=== PATIENT | male | born 1985 | race African-American/Black ===

== ENCOUNTER 2018-05-27 18:02 | Emergency (ER) | payer SELFPAY ==
[2018-05-27] MEDS ORDERED: CEFTRIAXONE INJ 250 MG VIAL IM ONE (20:09)
[2018-05-27] MEDS ORDERED: METRONIDAZOLE 500 MG TABLET PO STA (20:09)
[2018-05-27] MEDS ORDERED: AZITHROMYCIN 250 MG TABLET PO STA (20:10)
--- NOTE | 2018-05-27 20:24 | ER Document Report ---
ED GI/ - General Chief Complaint: Penile Discharge Stated Complaint: PENIAL DRAINAGE Time Seen by Provider: 05/27/18 19:59 Mode of Arrival: Ambulatory Information source: Patient Notes: Patient is a 32-year-old male comes emergency room 2 complaints his primary complaint is he believes he has an STD. #2 complaint is his right ankle hurts. Patient states that his cold is been going out with he believes she is contracted an STD most likely chlamydia he is started with a penile discharge that is not quite as yellow as what he remembers in his younger age more of a whitish kind of a discharge. It all started approximately 4 days ago. Patient furthermore states that she is being treated as well. The second thing is that he was at work today while lifting a mattress above his head was on a slight hill as he lifted his right ankle rolled on him inverted and complains of pain and swelling. He denies any injuries or fall. He continued throughout the day to finish work but it is swollen more since then. Patient is requesting that we treat him for his STD and also just treat his ankle he does not want an x-ray. TRAVEL OUTSIDE OF THE [place] IN LAST 30 DAYS: No - HPI Patient complains to provider of: Other - Penile discharge. No: Testicular pain Onset: Other Timing/Duration: Gradual - 4 days Quality of pain: No pain Severity at maximum: Mild Severity in ED: Mild Pain Level: 1 Location: Other - Penis. No: Left testicle, Right testicle Sexual history: Active, New partner, Unprotected intercourse, STD exposure Associated symptoms: Dysuria, Penile discharge Exacerbated by: Denies Relieved by: Denies Similar symptoms previously: Yes Recently seen / treated by doctor: No - Related Data Allergies/Adverse Reactions: phenytoin [From Dilantin] Allergy (Verified 05/27/18 18:04) Past Medical History - General Information source: Patient - Social History Smoking Status: Current Every Day Smoker Cigarette use (# per day): Yes - 1 pack a day Chew tobacco use (# tins/day): No Smoking Education Provided: Yes Frequency of alcohol use: None Drug Abuse: None Lives with: Alone Family History: Reviewed & Not Pertinent Patient has suicidal ideation: No Patient has homicidal ideation: No Renal/ Medical History: Denies: Hx Peritoneal Dialysis Review of Systems - Review of Systems Constitutional: No symptoms reported EENT: No symptoms reported Cardiovascular: No symptoms reported Respiratory: No symptoms reported Gastrointestinal: No symptoms reported Genitourinary: See HPI, Dysuria Male Genitourinary: See HPI, Penile discharge Musculoskeletal: See HPI, Joint pain, Joint swelling, Ankle swelling Skin: No symptoms reported Hematologic/Lymphatic: No symptoms reported Neurological/Psychological: No symptoms reported -: Yes All other systems reviewed and negative Physical Exam - Vital signs Vitals: Temp Pulse Resp BP Pulse Ox 98.7 F 81 17 114/62 100 05/27/18 18:32 05/27/18 18:32 05/27/18 18:32 05/27/18 18:32 05/27/18 18:32 Interpretation: Normal - Notes Notes: PHYSICAL EXAMINATION: GENERAL: patient is a well-nourished well-developed 32-year-old male who is in no apparent distress on physical examination. He is however slightly anxious and embarrassed about his presentation. HEAD: Atraumatic, normocephalic NECK: Normal range of motion, supple without lymphadenopathy LUNGS: Breath sounds clear to auscultation bilaterally and equal. No wheezes rales or rhonchi. HEART: Regular rate and rhythm without murmurs ABDOMEN: Soft, nontender, nondistended abdomen. No guarding, no rebound. Examination of patient's penis and testicles shows no discharge on present physical examination. Patient had previously urinated and thus no discharge. Also there were no tenderness to palpation of the testicles. They home evenly with a good cremaster reflex. Bilaterally. Musculoskeletal: Examination of patient's right ankle shows he has some mild swelling on the lateral malleoli are area. He has increased tenderness on the anterior portion of the right ankle just above the lateral malleolus. He has flexion extension of the foot with some discomfort and tenderness. He has a good vascular examination of the right ankle and foot with good dorsalis pedal pulse good cap refill in the nailbeds of the toes. NEUROLOGICAL: Normal speech. Normal sensory, motor exams PSYCH: Normal mood, normal affect. SKIN: Warm, Dry, normal turgor, no rashes or lesions noted. Course - Re-evaluation Re-evalutation: 05/27/18 20:19 Patient is requested that we treat his STD since he has known exposure. We will do this with a 250 Rocephin IM as well as 1 g of Zithromax and 2 g of Flagyl. I will give him our number here to contact us tomorrow to find out whether it was positive or not. He is also refused to have an x-ray performed. Given that we are placing him in an Jesus wrap and I have informed him that I cannot really tell him if he has an avulsion fracture of the area or not. At this point patient states he will use the Jesus wrap take it off when he gets home he will purchase of those Jesus socks at 1 of the pharmacy so he can just pull it on it and use it and as he gets worse he will return to ER he says. 05/28/18 01:47 - Vital Signs Vital signs: Temp Pulse Resp BP Pulse Ox 97.9 F 69 14 135/69 H 100 05/27/18 20:50 05/27/18 20:50 05/27/18 20:50 05/27/18 20:50 05/27/18 20:50 - Laboratory Laboratory results interpreted by me: 05/27/18 19:14 N.gonorrhoeae DNA (PCR) DETECTED H Procedures - Immobilization Right Ankle Time completed: 20:20 Pre-Proc Neuro Vasc Exam: Normal Immobilizer type: Jesus wrap Performed by: PCT Post-Proc Neuro Vasc Exam: Normal, Abnormal Discharge - Discharge Clinical Impression: Exposure to STD Right ankle sprain Qualifiers: Encounter type: initial encounter Involved ligament of ankle: unspecified ligament Qualified Code(s): S93.401A - Sprain of unspecified ligament of right ankle, initial encounter Condition: Stable Disposition: HOME, SELF-CARE Instructions: Gonorrhea ([facility]), Splint Precautions ([facility]), Sprain ([facility]), Sprained Ankle ([facility]) Additional Instructions: Trichomonas Infection Trichomoniasis is infection of the vagina or male genital tract with Trichomonas vaginalis. It can be asymptomatic or cause urethritis, vaginitis, or occasionally cystitis, epididymitis, or prostatitis. Diagnosis is by microscopic examination of vaginal or prostatic secretions or by urethral culture. Patients and sex partners are treated with metronidazole. T. vaginalis is a flagellated, sexually transmitted protozoan that more often infects women (about 20% of women of reproductive age) than men. Infection may be asymptomatic in either sex, but asymptomatic is the rule for men. In men, protozoa may persist for long periods in the tract without causing symptoms; thus, protozoa may be transmitted unwittingly to sex partners. Trichomoniasis may account for up to 5% of nongonococcal, nonchlamydial urethritis in men in some areas. Co-infection with gonorrhea and other sexually transmitted diseases (STDs) is common. In women, symptoms range from none to copious, yellow-green, frothy vaginal discharge with soreness of the vulva and perineum, dyspareunia, and dysuria. Asymptomatic infection may become symptomatic at any time as the vulva and perineum become inflamed and edema develops in the labia. The vaginal diaz and surface of the cervix may have punctate, red "strawberry" spots. Urethritis and possibly cystitis may also occur. Men are usually asymptomatic; however, sometimes urethritis results in a discharge that may be transient, frothy, or purulent or that causes dysuria and frequency, usually early in the morning. Often, urethritis is mild and causes only minimal urethral irritation and occasional moisture at the urethral meatus, under the foreskin, or both. Epididymitis and prostatitis are rare complications. Trichomoniasis is suspected in women with vaginitis, in men with urethritis, and in their sex partners. Suspicion is high if symptoms persist after patients have been evaluated and treated for other infections such as gonorrhea and chlamydial, mycoplasmal, and ureaplasmal infections. In women, diagnosis is based on clinical criteria and in-office testing. The saline wet mount is examined microscopically as soon as possible to detect trichomonads.In men, microscopy of urine is insensitive, although occasionally organisms are visible in a first-voided morning specimen or a centrifuged specimen. Cultures of urine and urethral swabs are more sensitive. As with diagnosis of any STD, patients with trichomoniasis should be tested to exclude other common STDs such as gonorrhea and chlamydial infection. Metronidazole or tinidazole 2 g po in a single dose cures up to 95% of women if sex partners are treated simultaneously. Effectiveness of single-dose regimens in men is not as clear, so treatment is typically with metronidazole or tinidazole 500 mg bid for 5 to 7 days. Sex partners should be screened and treated for trichomoniasis and other STDs. If poor adherence to follow-up is likely, treatment can be initiated in sex partners of patients with documented trichomoniasis without confirming the diagnosis in the partner. Chlamydia You may have a chlamydia infection. Chlamydia is a germ that grows inside the cells of the mucous membranes. It often infects the eyes, urethra, and fallopian tubes. It can cause chronic pain and scar tissue if untreated. Antibiotics are used to treat chlamydia. It's important to take all the medicine even if there are no symptoms. Use condoms to prevent spread of the infection. Because this infection can spread by sexual contact, it's important that your sexual partner be checked before resuming sexual relations. A positive test for chlamydia has to be reported to the health department. Call the doctor or return at once if you develop increasing fever, rash, severe pelvic pain, vaginal bleeding (other than your period), or problems with your bladder or bowels. For your ankle cytology without having an x-ray is difficult to see if there is a fractured or not. However go to [facility] and get an Jesus wrap that has the toes cut out a bit and the heel cut out of it and slides on this will make it easier for you to slide it on and use it for work. Ice down when you get home at night 3 or 3 times a day. I am giving ibuprofen for the inflammation and swelling. You may also add Tylenol along with that if you would like. Should you have have continued pain and discomfort return to ER for recheck. Also on the STD treating you here is covered gonorrhea chlamydia and trichomonas we do not test for HIV you need to go to the health department for that. Also both partners have to be treated to make certain that it is gone and you cannot have intercourse while you were both being treated you must wait 10 days after your treatment we start intercourse if you do not you we will just keep the plopping back and forth. Prescriptions: Ibuprofen [Motrin 800 mg Tablet] 800 mg PO Q8H PRN #30 tab PRN Reason: Referrals: CONSTANTINE HOOK MD [[facility]] - Follow up as needed
[2018-05-27 20:58] VITALS: BP 135/69
[2018-05-27 22:28] LABS: CHLAM PCR NOT DETECTED (NOT DETECT); GON PCR DETECTED (NOT DETECT)
== END 2018-05-27 20:54 | disposition home or self-care (01) ==
LOC: ER 18:02
DX: S93.401A Sprain of unspecified ligament of right ankle, initial encounter (principal); Z20.2 Contact with and (suspected) exposure to infections with a predominantly sexual mode of transmission; R36.9 Urethral discharge, unspecified; M25.571 Pain in right ankle and joints of right foot; X50.1XXA Overexertion from prolonged static or awkward postures, initial encounter; F17.210 Nicotine dependence, cigarettes, uncomplicated
CPT/HCPCS: 99283; 96372; 87491; 87591; J0696

== ENCOUNTER 2018-08-10 13:58 | Emergency (ER) | payer SELFPAY ==
[2018-08-10] MEDS ORDERED: CEFTRIAXONE INJ 250 MG VIAL IM ONE (15:36)
[2018-08-10] MEDS ORDERED: LIDOCAINE 1% INJ-PF (10 MG/ML) 30 ML SDV IM ONE (15:36)
[2018-08-10] MEDS ORDERED: AZITHROMYCIN 250 MG TABLET PO ONE (15:38)
--- NOTE | 2018-08-10 15:42 | ER Document Report ---
ED General - General Chief Complaint: STD Exposure Stated Complaint: STD CHECK Time Seen by Provider: 08/10/18 15:34 Mode of Arrival: Ambulatory Information source: Patient TRAVEL OUTSIDE OF THE [place] IN LAST 30 DAYS: No - HPI Patient complains to provider of: Dysuria, urethral discharge Onset: Last week Onset/Duration: Gradual Quality of pain: No pain Severity: None Associated symptoms: denies: Chills, Diarrhea, Fever, Nausea, Vomiting Exacerbated by: Denies Relieved by: Denies Similar symptoms previously: No Recently seen / treated by doctor: No Notes: 32-year-old -[place] male coming in today with chief complaint of urethral discharge and dysuria for the past week or so. Thinks he got infected with an STD. History of gonorrhea and chlamydia in the past. No fevers or shaking chills. - Related Data Allergies/Adverse Reactions: phenytoin [From Dilantin] Allergy (Verified 05/27/18 18:04) Past Medical History - General Information source: Patient - Social History Smoking Status: Current Some Day Smoker Family History: Reviewed & Not Pertinent Renal/ Medical History: Denies: Hx Peritoneal Dialysis Review of Systems - Review of Systems Notes: Constitutional: No fevers. No chills. EENT: No eye redness. No eye pain. No ear pain. No sore throat. Cardiovascular: No chest pain. No palpitations. Respiratory: No cough. No shortness of breath. No respiratory distress. Gastrointestinal: No abdominal pain. No nausea, vomiting, or diarrhea. Genitourinary: Atraumatic. Positive dysuria. Positive urethral discharge Musculoskeletal: Atraumatic. No swelling. No deformities. Skin: No rash or lesions. Lymphatic: No swollen lymph nodes. Neurologic: No headache. No syncope. Psychiatric: No suicidal or homicidal ideation. Physical Exam - Vital signs Vitals: Temp Pulse Resp BP Pulse Ox 98.2 F 74 16 128/75 H 99 08/10/18 14:32 08/10/18 14:32 08/10/18 14:32 08/10/18 14:32 08/10/18 14:32 - Notes Notes: General: Well-developed, well-nourished. In no acute distress. Non-toxic appearing. Cardiac: Well-perfused. Regular rate and rhythm. No murmurs, rubs, or gallops. Pulmonary: No respiratory distress. No cyanosis. Bilateral lung fiels are clear to auscultation. Abdominal: Non-distended. Non-rigid. Bowels sounds are present in all four quadrants. No guarding or rebound. HEENT: Head is atraumatic. Conjunctivae not reddened. No tearing. PERRL. EOMI. Orbits atraumatic. No periorbital swelling or erythema. Oropharynx is without erythema, swelling, or exudates. Neck: Supple. No adenopathy. No meningismus. Dermatologic: Warm with good turgor. No rash. Atraumatic. Chest: Atraumatic. No chest wall tenderness to palpation. Musculoskeletal: Moves all extremities well. No range of motion deficits. no muscular or joint tenderness. No paraspinal muscle tenderness. no midline spinal tenderness or step-off. Genitourinary: Examination deferred per patient request Neurologic: No gross neurologic deficits. Psychiatric: Normal mood. Course - Vital Signs Vital signs: Temp Pulse Resp BP Pulse Ox 98.2 F 74 16 128/75 H 99 08/10/18 14:32 08/10/18 14:32 08/10/18 14:32 08/10/18 14:32 08/10/18 14:32 Discharge - Discharge Clinical Impression: Urethritis Condition: Good Disposition: HOME, SELF-CARE Instructions: Urethritis ([facility]) Additional Instructions: Please be safe when having sexual relations. Condoms can prevent and passage of sexually transmitted infections. Referrals: [facility] [Provider Group] - Follow up as needed
[2018-08-10 15:47] LABS: APPEARANCE,URINE SLIGHTLY-CLOUDY; BILIRUBIN,URINE NEGATIVE (NEGATIVE); COLOR,URINE YELLOW; GLUCOSE, URINE NEGATIVE (NEGATIVE); KETONES,URINE TRACE mg/dL (NEGATIVE); LEUKOCYTE ESTERASE,URINE MODERATE (NEGATIVE); NITRITE,URINE NEGATIVE (NEGATIVE); PROTEIN,URINE NEGATIVE (NEGATIVE); URINE SPECIFIC GRAVITY 1.021; UROBILINOGEN,URINE NEGATIVE mg/dL (<2.0)
[2018-08-10 16:53] VITALS: BP 123/89
[2018-08-10 17:08] LABS: CHLAM PCR DETECTED (NOT DETECT); GON PCR DETECTED (NOT DETECT)
== END 2018-08-10 16:30 | disposition home or self-care (01) ==
LOC: ER 13:58
DX: N34.2 Other urethritis (principal); Z20.2 Contact with and (suspected) exposure to infections with a predominantly sexual mode of transmission; R30.0 Dysuria; R36.9 Urethral discharge, unspecified; F17.200 Nicotine dependence, unspecified, uncomplicated; Z88.8 Allergy status to other drugs, medicaments and biological substances
CPT/HCPCS: 99283; 96372; 81001; 87491; 87591; J3490; J0696

== ENCOUNTER 2019-04-10 18:56 | Emergency (ER) | payer OTHER ==
[2019-04-10 19:20] LABS: ABSOLUTE BASOPHILS # (AUTO) 0.1 10^3/uL (0.0-0.2); ABSOLUTE EOSINOPHILS # (AUTO) 0.1 10^3/uL (0.0-0.6); ABSOLUTE LYMPHOCYTES (AUTO) 1.9 10^3/uL (0.5-4.7); ABSOLUTE MONOCYTES (AUTO) 0.5 10^3/uL (0.1-1.4); ABSOLUTE NEUT (AUTO) 5.9 10^3/uL (1.7-8.2); BASOPHILS % (AUTO) 0.8 % (0-2); EOSINOPHILS % (AUTO) 0.8 % (0-6); HEMOGLOBIN 14.7 g/dL (13.5-17.0); LYMPHOCYTES % (AUTO) 22.6 % (13-45); MEAN CORPUSCULAR HEMOGLOBIN 32.1 pg (27.0-33.4); MEAN CORPUSCULAR HGB CONC 34.2 g/dL (32.0-36.0); MEAN CORPUSCULAR VOLUME 94 fl (80-97); MONOCYTES % (AUTO) 5.7 % (3-13); PLATELET COUNT 250 10^3/uL (150-450); RED BLOOD COUNT 4.58 10^6/uL (4.35-5.55); SEGMENTED NEUTROPHILS % (AUTO) 70.1 % (42-78); TOTAL CELLS COUNTED % (AUTO) 100 %; WHITE BLOOD COUNT 8.4 10^3/uL (4.0-10.5)
[2019-04-10 19:44] LABS: ALBUMIN 4.3 g/dL (3.5-5.0); ALKALINE PHOSPHATASE 48 U/L (38-126); ANION GAP 9 (5-19); ASPARTATE AMINO TRANSFERASE 28 U/L (17-59); BILIRUBIN,DIRECT 0.1 mg/dL (0.0-0.4); BILIRUBIN,TOTAL 0.2 mg/dL (0.2-1.3); BLOOD UREA NITROGEN 10 mg/dL (7-20); CALCIUM 9.7 mg/dL (8.4-10.2); CARBON DIOXIDE 27 mmol/L (22-30); CHLORIDE 107 mmol/L (98-107); GLUCOSE 82 mg/dL (75-110); POTASSIUM 4.6 mmol/L (3.6-5.0); TOTAL PROTEIN 7.2 g/dL (6.3-8.2)
--- NOTE | 2019-04-10 21:32 | EKG REPORT ---
SEVERITY:- NORMAL ECG - SINUS RHYTHM ST ELEV, PROBABLE NORMAL EARLY REPOL PATTERN : Confirmed by: Reuben Barillas 10-Apr-2019 21:31:24
[2019-04-10] MEDS ORDERED: VALPROATE SODIUM INJ/PF 500 MG/5 ML SDV IV ONE ×3 (22:02→22:20)
[2019-04-10 23:26] VITALS: BP 122/76
--- NOTE | 2019-06-15 11:45 | ER Document Report ---
Entered by CAMILO SANTANA SCRIBE 04/10/192023 Acting as scribe for:CYNDEE FARRIS MD ED Seizure - General Chief Complaint: Seizure Stated Complaint: POSSIBLE SEIZURE Information source: Patient Notes: 33 year old male in custody of the [facility] department that presents to the emergency department today with complaints of a seizure while in residential today. According to residential records, the patient was incarcerated earlier this morning and had a seizure prior to arrival tonight. When reviewing the external pharmacy database the patient has been filling his Depakote although he states he has not had it. Patient reports being minimally compliant with his seizure medications. Patient is a poor historian so history is limited. - Related Data Allergies/Adverse Reactions: phenytoin [From Dilantin] Allergy (Verified 05/27/18 18:04) Past Medical History - General Information source: Patient - Social History Smoking Status: Unknown if Ever Smoked Lives with: Other - Skilled Nursing Family History: Reviewed & Not Pertinent Patient has suicidal ideation: No Patient has homicidal ideation: No Neurological Medical History: Reports: Hx Seizures Review of Systems - Review of Systems Constitutional: No symptoms reported EENT: No symptoms reported Cardiovascular: No symptoms reported Respiratory: No symptoms reported Gastrointestinal: No symptoms reported Genitourinary: No symptoms reported Male Genitourinary: No symptoms reported Musculoskeletal: No symptoms reported Skin: No symptoms reported Hematologic/Lymphatic: No symptoms reported Neurological/Psychological: See HPI, Seizure -: Yes All other systems reviewed and negative Physical Exam - Vital signs Vitals: Temp Resp BP Pulse Ox 98 F 17 120/73 99 04/10/19 19:10 04/10/19 19:10 04/10/19 19:10 04/10/19 19:10 - Notes Notes: Physical Exam: General: Sleeping but arouses easily. HEENT: Normocephalic. Atraumatic. PERRL. Extraocular movements intact. Oropharynx clear. Neck: Supple. Non-tender. Respiratory: No respiratory distress. Clear and equal breath sounds bilaterally. Cardiovascular: Regular rate and rhythm. Abdominal: Normal Inspection. Non-tender. No distension. Normal Bowel Sounds. Back: Left upper thoracic paraspinal tenderness with palpation. no step offs or crepitus. Extremities: Moves all four extremities. Upper extremities: Normal inspection. Normal ROM. Lower extremities: Normal inspection. No edema. Normal ROM. Neurological: Normal cognition. AAOx4. Normal speech. Psychological: Normal affect. Normal Mood. Skin: Warm. Dry. Normal color. Course - Re-evaluation Re-evalutation: 04/10/19 22:03 Patient's Depakote level is 22. Calculating his loading dose that should be 1200. Will low-dose patient at this time. 04/10/19 22:18 Reviewing external pharmacy records patient had approximately 4 days ago Depakote extended release filled instructions take to 500 mg extended release pills a day. He was only filled for 5 days. Upon talking to the deputy who is watching over the patient this time he states that the patient is going to be transferred from their facility soon and that he may not been receiving his medications as prescribed. 04/10/19 22:22 Patient sleeping comfortably alert to verbal stimuli remains alert oriented x3. His labs are within normal limits are nonsignificant. EKG shows no concerning findings. Anticipate discharge back to halfway after loading dose administered 04/10/19 23:10 04/11/19 00:06 Patient remains alert oriented able to ambulate. Will provide 7 days a prescription based on external pharmacy records. - Vital Signs Vital signs: Temp Pulse Resp BP Pulse Ox 98 F 15 122/76 99 04/10/19 19:10 04/10/19 23:01 04/10/19 23:01 04/10/19 23:01 - Laboratory Result Diagrams: 04/10/19 19:14 04/10/19 19:14 Laboratory results interpreted by me: 04/10/19 19:14 Valproic Acid 22.1 L - EKG Interpretation by Me Additional EKG results interpreted by me: 04/10/19 22:22 Time 1908 Rate of 69, normal sinus rhythm, diffuse early repolarization, normal axis and intervals Discharge - Discharge Clinical Impression: History of seizures, Observed seizure-like activity Condition: Good Disposition: OTHER Instructions: Seizure, Known Epileptic ([facility]) Additional Instructions: You have been given 7 days of your Depakote medication. You have to get additional days refill at facility you will be incarcerated Prescriptions: Divalproex Sodium [Depakote ER] 500 mg PO DAILY 7 Days #14 [id number] I personally performed the services described in the documentation, reviewed and edited the documentation which was dictated to the scribe in my presence, and it accurately records my words and actions.
== END 2019-04-11 00:14 | disposition other institution (70) ==
LOC: ER 18:56
DX: Z53.21 Procedure and treatment not carried out due to patient leaving prior to being seen by health care provider (principal); R56.9 Unspecified convulsions
CPT/HCPCS: 99284; 96365; 36415; 82962; 85025; 80053; 80164; 93005; 93010; J3490

== ENCOUNTER 2019-04-12 08:25 | Emergency (ER) | payer OTHER ==
[2019-04-12 09:11] LABS: ABSOLUTE BASOPHILS # (AUTO) 0.1 10^3/uL (0.0-0.2); ABSOLUTE LYMPHOCYTES (AUTO) 1.7 10^3/uL (0.5-4.7); ABSOLUTE MONOCYTES (AUTO) 0.4 10^3/uL (0.1-1.4); ABSOLUTE NEUT (AUTO) 3.8 10^3/uL (1.7-8.2); BASOPHILS % (AUTO) 0.9 % (0-2); EOSINOPHILS % (AUTO) 0.7 % (0-6); HEMATOCRIT 43.4 % (37.9-51.0); MEAN CORPUSCULAR HEMOGLOBIN 32.2 pg (27.0-33.4); MEAN CORPUSCULAR HGB CONC 34.6 g/dL (32.0-36.0); MEAN CORPUSCULAR VOLUME 93 fl (80-97); MONOCYTES % (AUTO) 6.7 % (3-13); PLATELET COUNT 260 10^3/uL (150-450); RED BLOOD COUNT 4.66 10^6/uL (4.35-5.55); RED CELL DISTRIBUTION WIDTH 13.1 % (11.5-14.0); SEGMENTED NEUTROPHILS % (AUTO) 63.7 % (42-78); TOTAL CELLS COUNTED % (AUTO) 100 %
[2019-04-12 09:28] LABS: ALBUMIN 4.2 g/dL (3.5-5.0); ALKALINE PHOSPHATASE 57 U/L (38-126); ANION GAP 10 (5-19); ASPARTATE AMINO TRANSFERASE 24 U/L (17-59); BILIRUBIN,DIRECT 0.2 mg/dL (0.0-0.4); BILIRUBIN,TOTAL 0.6 mg/dL (0.2-1.3); BLOOD UREA NITROGEN 11 mg/dL (7-20); CALCIUM 9.6 mg/dL (8.4-10.2); CARBON DIOXIDE 25 mmol/L (22-30); CHLORIDE 105 mmol/L (98-107); GLUCOSE 93 mg/dL (75-110); POTASSIUM 4.3 mmol/L (3.6-5.0); TOTAL PROTEIN 7.4 g/dL (6.3-8.2)
[2019-04-12 09:33] LABS: ALCOHOL < 10 mg/dL (NONE DETECTED)
[2019-04-12] MEDS ORDERED: DIVALPROEX SODIUM 250 MG TABLET.DR PO ONE (10:21)
--- NOTE | 2019-04-12 10:23 | ER Document Report ---
Entered by CAMILO SANTANA SCRIBE 04/12/19 0919 Acting as scribe for:JONNY ALEGRIA MD ED Seizure - General Chief Complaint: Seizure Stated Complaint: POSSIBLE SEIZURE Time Seen by Provider: 04/12/19 09:05 Mode of Arrival: Medic Information source: Patient, [facility] Records, Outside Facility Records - [facility] Notes: 33-year-old male in custody of the [facility] that presents to the emergency department today for a seizure. Patient was seen here x2 days ago as well for seizures. Patient's valproic acid level x2 days ago was 22.1. Patient states he has been taking the depakote since discharge. The history two days ago was very convoluted and difficult to obtain, but he stated that he had not been taking his medications daily at that point. - Related Data Allergies/Adverse Reactions: phenytoin [From Dilantin] Allergy (Verified 05/27/18 18:04) Home Medications: depakote Past Medical History - General Information source: Patient, [facility] Records - Social History Smoking Status: Current Some Day Smoker Cigarette use (# per day): Yes - 1ppd when not incarcerated Lives with: Other - Skilled Nursing Family History: Reviewed & Not Pertinent Patient has suicidal ideation: No Patient has homicidal ideation: No Neurological Medical History: Reports: Hx Seizures Review of Systems - Review of Systems Constitutional: No symptoms reported EENT: No symptoms reported Cardiovascular: No symptoms reported Respiratory: No symptoms reported Gastrointestinal: No symptoms reported Genitourinary: No symptoms reported Male Genitourinary: No symptoms reported Musculoskeletal: No symptoms reported Skin: No symptoms reported Hematologic/Lymphatic: No symptoms reported Neurological/Psychological: See HPI, Seizure -: Yes All other systems reviewed and negative Physical Exam - Vital signs Vitals: Pulse Ox 98 04/12/19 08:27 - Notes Notes: Physical Exam: General: Alert, appears well, in handcuffs in custody of the [facility]. HEENT: Normocephalic. Atraumatic. PERRL. Extraocular movements intact. Oropharynx clear. No tongue biting/chewing. Neck: Supple. Non-tender. Respiratory: No respiratory distress. Clear and equal breath sounds bilaterally. Cardiovascular: Regular rate and rhythm. Abdominal: Normal Inspection. Non-tender. No distension. Normal Bowel Sounds. Back: No gross abnormalities. Extremities: Moves all four extremities. Upper extremities: Normal inspection. Normal ROM. Lower extremities: Normal inspection. No edema. Normal ROM. Neurological: Normal cognition. AAOx4. Normal speech. Psychological: Normal affect. Normal Mood. Skin: Warm. Dry. Normal color. Course - Re-evaluation Re-evalutation: 04/12/19 10:43 Depakote level is only 23.9 today, it would appear that he has not been receiving the medication while he is in the senior care. - Vital Signs Vital signs: Temp Pulse Resp BP Pulse Ox 99.0 F 16 137/76 H 99 04/12/19 08:28 04/12/19 08:28 04/12/19 08:28 04/12/19 08:28 - Laboratory Result Diagrams: 04/12/19 08:30 04/12/19 08:30 Laboratory results interpreted by me: 04/12/19 04/12/19 08:30 08:30 Phenytoin < 3.0 L Valproic Acid 23.9 L Discharge - Discharge Clinical Impression: Seizure, History of seizures Condition: Stable Disposition: HOME, SELF-CARE Additional Instructions: Seizure, Known Epileptic You have had a seizure. Seizures may "break through" in an epileptic due to stress of infection or injury, a change in blood chemistry, or drug and alcohol use. Another common cause is failure to take medication as prescribed. Your doctor has evaluated your situation for the likely cause of this seizure. It is important that you follow his advice concerning any medication changes and follow-up care. Further testing of anti-seizure medication levels in your blood may be necessary. If you have a [place] driver's license, it's important that you DO NOT DRIVE until given permission by your physician. This seizure must be reported to the [place] driver's license bureau. Call the doctor or return if seizures recur, or if new or unusual symptoms arise -- such as severe headache, confusion, excessive sleepiness, local weakness or numbness, neck stiffness, or fever. Take the Depakote as prescribed today. Do not take the prescription that was provided to you 2 days ago, as it is unclear if this medication was ever filled or if they are providing it to you. RETURN TO THE EMERGENCY ROOM IF ANY NEW OR WORSENING SYMPTOMS. Prescriptions: Divalproex Sodium [Depakote] 500 mg PO BID 30 Days #60 tablet.dr Norton Attestation: 04/12/19 09:46 I personally performed the services described in the documentation, reviewed and edited the documentation which was dictated to the scribe in my presence, and it accurately records my words and actions. I personally performed the services described in the documentation, reviewed and edited the documentation which was dictated to the scribe in my presence, and it accurately records my words and actions.
[2019-04-12 11:04] LABS: APPEARANCE,URINE CLEAR; BILIRUBIN,URINE NEGATIVE (NEGATIVE); COLOR,URINE YELLOW; GLUCOSE, URINE NEGATIVE (NEGATIVE); KETONES,URINE 20 mg/dL (NEGATIVE); LEUKOCYTE ESTERASE,URINE NEGATIVE (NEGATIVE); NITRITE,URINE NEGATIVE (NEGATIVE); PROTEIN,URINE NEGATIVE (NEGATIVE); URINE SPECIFIC GRAVITY 1.019; UROBILINOGEN,URINE NEGATIVE mg/dL (<2.0)
[2019-04-12 11:07] LABS: URINE AMPHETAMINES SCREEN NEGATIVE; URINE BARBITURATES SCREEN NEGATIVE; URINE BENZODIAZEPINES SCREEN UNCONFIRMED POSITIVE; URINE COCAINE SCREEN NEGATIVE; URINE MARIJUANA (THC) SCREEN UNCONFIRMED POSITIVE; URINE METHADONE SCREEN NEGATIVE; URINE PHENCYCLIDINE SCREEN NEGATIVE
[2019-04-12 11:15] VITALS: BP 123/80
== END 2019-04-12 11:11 | disposition home or self-care (01) ==
LOC: ER 08:25
DX: R56.9 Unspecified convulsions (principal); F17.210 Nicotine dependence, cigarettes, uncomplicated
CPT/HCPCS: 36415; 80053; 80164; 80185; 80307; 81001; 83735; 85025; 99285